=== PATIENT | female | born 1970 | race Caucasian/White ===

== ENCOUNTER 2019-09-27 06:25 | Outpatient (CLI) | payer BC, OTHER ==
[2019-09-28 12:17] LABS: SARS-CoV-2 MS2 Positive; SARS-CoV-2 N Gene Negative; SARS-CoV-2 S Gene Negative; SARS-CoV-2 orf1ab Negative
== END 2019-09-27 06:26 | disposition home or self-care (01) ==
LOC: LABBT 06:25
PROVIDERS: ATTEND Plastic Surgery
DX: Z01.818 Encounter for other preprocedural examination (principal); Z11.59 Encounter for screening for other viral diseases; C43.71 Malignant melanoma of right lower limb, including hip
CPT/HCPCS: 87635; 93005; 93010; U0003

== ENCOUNTER 2019-09-30 07:31 | Day surgery (SDC) | payer BC ==
[2019-09-26 14:55] VITALS: BMI 27.5
--- NOTE | 2019-09-30 09:46 | NM ---
RIGHT LOWER EXTREMITY LYMPHOSCINTIGRAPHY: HISTORY: Melanoma in the right lower leg just above the ankle. RADIOPHARMACEUTICAL: 432 mCi Technetium 99m filtered sulfur colloid injected perilesionally in divided doses. FINDINGS: There are multiple foci of increased uptake in the right groin. IMPRESSION: Norton lymph nodes in the right groin. POS: KALPANA
[2019-09-30 11:06] LABS: Anion Gap 12 mmol/L (10-20); BUN (Urea Nitrogen) 8 mg/dL (9.8-20.1); Calc. Creatinine Clearance 114 mL/min (70-130); Calcium 9.7 mg/dL (7.8-10.44); Carbon Dioxide 22 mmol/L (22-29); Chloride 99 mmol/L (98-107); Estimated GFR-MDRD 71; Glucose 169 mg/dL (70-105); Potassium 4.1 mmol/L (3.5-5.1); Sodium 129 mmol/L (136-145)
[2019-09-30] MEDS ORDERED: Isosulfan Blue 50 MG/5 ML VIAL ONE ×2 (11:11)
[2019-09-30] MEDS ORDERED: Bupivacaine 0.25% HCL 30 ML VIAL ONE ×2 (11:11)
[2019-09-30] MEDS ORDERED: EPINEPHrine 1 MG/ML AMP ONE ×2 (11:11→13:06)
[2019-09-30] MEDS ORDERED: Lidocaine 1% PF 5 ML VIAL ONE (11:18)
[2019-09-30] MEDS ORDERED: PHENYLEPHRINE-NS 100 MCG/ML 10 ML SYRINGE ONE (11:18)
[2019-09-30] MEDS ORDERED: EPHEDRINE 25 MG/5 ML SYRINGE ONE (11:18)
[2019-09-30] MEDS ORDERED: PROPOFOL 200 MG/20 ML VIAL ONE (11:18)
[2019-09-30] MEDS ORDERED: Ondansetron PF 4 MG/2 ML Vial ONE (11:18)
[2019-09-30] MEDS ORDERED: Fentanyl 100 MCG/2 ML VIAL ONE ×2 (12:17→15:08)
[2019-09-30] MEDS ORDERED: Mineral Oil Sterile 10ML 10 ML UDCUP ONE (13:27)
--- NOTE | 2019-10-01 12:28 | OP ---
DATE OF PROCEDURE: 09/30/2019 PREOPERATIVE DIAGNOSIS: Melanoma, right leg. POSTOPERATIVE DIAGNOSIS: Melanoma, right leg. PROCEDURES: 1. Injection of dye for identification of sentinel lymph node (22466). 2. Wide excision of melanoma, right leg (5.5 cm, including adequate margins) (71436). 3. Right inguinal open sentinel lymph node biopsy (61160). 4. Full thickness skin graft of right leg (30 sq cm). 5. Application of acellular wound matrix, right lower extremity (30 sq cm) (66639). 6. Split-thickness skin graft of right leg (30 sq cm) (96253). 7. Application of wound VAC. DESCRIPTION OF PROCEDURE: Following induction of adequate anesthesia, the patient was prepped and draped in usual sterile fashion in supine position. Lymphazurin blue was injected intradermally around the patient's right lower leg melanoma. After the dye had adequate time to take effect, the lesion was widely excised with adequate margins down to and including the underlying fascia. It was remarkable how little bleeding that there was during the surgery. I would attribute this to significant vascular disease. A 02/1000 of an inch split-thickness graft was harvested from the ipsilateral lateral thigh and meshed at 1-1/2 to 1. It was placed on the right lower leg recipient site after acellular matrix was placed on the wound bed. The graft was secured with 3-0 Prolene suture. Acellular matrix was also placed to the donor site which was 30 sq cm. Attention was turned to the right inguinal basin. An incision was made in the right inguinal crease. Dissection was guided by the Neoprobe down to identify a blue lymph node with counts over 1000. The residual basin had counts of less than 25. Again, there was a startling absence of even small capillary bleeding. The wound was copiously irrigated and closed in layers with 3-0 PDS suture and 4-0 Monocryl suture. Sterile dressings were placed over the incision sites. A wound VAC was placed over the recipient site. Job ID: [id number]
== END 2019-09-30 16:45 | disposition home or self-care (01) ==
LOC: SDC 07:31
PROVIDERS: ATTEND Plastic Surgery
PROC: 0HRKX74 Replacement of Right Lower Leg Skin with Autologous Tissue Substitute, Partial Thickness, External Approach (ICD-10-PCS; principal; 2019-09-30)
PROC: 07BH0ZX Excision of Right Inguinal Lymphatic, Open Approach, Diagnostic (ICD-10-PCS; principal; 2019-09-30)
PROC: 0HBKXZZ Excision of Right Lower Leg Skin, External Approach (ICD-10-PCS; principal; 2019-09-30)
DX: C43.71 Malignant melanoma of right lower limb, including hip (principal); E10.9 Type 1 diabetes mellitus without complications; Z79.899 Other long term (current) drug therapy; Z88.1 Allergy status to other antibiotic agents; Z88.0 Allergy status to penicillin; Z88.2 Allergy status to sulfonamides; Z96.41 Presence of insulin pump (external) (internal)
CPT/HCPCS: 36416; 78195; 80048; 88305; 88307; 88342; A9541; J0171; J0690; J2405; J2704; J3010; Q9968; S0020

== ENCOUNTER 2020-03-30 12:56 | Outpatient (CLI) | payer BC ==
--- NOTE | 2020-03-30 13:50 | MMO ---
Right Breast MAMMO Unilat Diag DDI RT. CLINICAL HISTORY: Patient is 50 years old and is seen for breast biopsy. The patient has a history of right Ultrasound Guided Core Biopsy in March,. VIEWS: The views performed were: right craniocaudal and right mediolateral oblique. FILMS COMPARED: The present examination has been compared to a prior imaging study performed at [facility] on 02/17/2020. This study has been interpreted with the assistance of computer-aided detection. MAMMOGRAM FINDINGS: There are scattered fibroglandular densities. There is an area of architectural distortion with associated biopsy clip seen in the inner region of the right breast. IMPRESSION: AREA OF ARCHITECTURAL DISTORTION IN THE RIGHT BREAST IS CONFIRMED UTILIZING POST PROCEDURE MAMMOGRAM. THE RESULTS OF THIS EXAM WERE SENT TO THE PATIENT. MAMMOGRAPHY NOTE: 1. A negative mammogram report should not delay a biopsy if a dominant of clinically suspicious mass is present. 2. Approximately 10% to 15% of breast cancers are not detected by mammography. 3. Adenosis and dense breasts may obscure an underlying neoplasm. Reported by: MARRY SCHWARTZ MD Electonically Signed: [id number]
== END 2020-03-30 12:57 | disposition home or self-care (01) ==
LOC: BICMAMMO 12:56
PROVIDERS: ATTEND Specialist
DX: N63.10 Unspecified lump in the right breast, unspecified quadrant (principal); R92.8 Other abnormal and inconclusive findings on diagnostic imaging of breast

== ENCOUNTER 2020-04-28 07:26 | Day surgery (SDC) | payer BC ==
[2020-04-27 14:27] VITALS: BMI 29.8
--- NOTE | 2020-04-28 09:04 | NM ---
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 The radiopharmaceutical was injected into 4 spots surrounding the nipple at the 12:00, 3:00, 6:00, and 9:00 positions. Massage was performed of the breast helping the radiopharmaceutical enter the lymphatics. Images obta ined showed uptake of the radiopharmaceutical within 2 axillary lymph nodes. IMPRESSION: Right axillary sentinel lymph nodes
[2020-04-28] MEDS ORDERED: Acetaminophen 500 MG TAB ONE (09:22)
[2020-04-28] MEDS ORDERED: Ketorolac Tromethamine 30 MG/ML VIAL ONE (09:23)
[2020-04-28] MEDS ORDERED: Levofloxacin 500 mg/D5W 100 ml Premix Bag ONE (09:23)
[2020-04-28] MEDS ORDERED: Isosulfan Blue 50 MG/5 ML VIAL ONE (09:34)
[2020-04-28] MEDS ORDERED: Bupivacaine 0.25% HCL 30 ML VIAL ONE ×2 (09:34→10:54)
[2020-04-28] MEDS ORDERED: EPINEPHrine 1 MG/ML AMP ONE ×2 (09:34→10:54)
[2020-04-28 10:00] LABS: #Eosinphils 0.1 thou/uL (0.0-0.7); #Monocytes 0.5 thou/uL (0.11-0.59); #Neutrophils 4.4 thou/uL (1.40-6.50); %Basophils 0.5 % (0.0-1.0); %Eosinophils 0.9 % (0.0-10.0); %Lymphocytes 17.2 % (21.0-51.0); %Monocytes 8.3 % (0.0-10.0); %Neutrophils 73.1 % (42.0-75.0); Hemoglobin 12.6 g/dL (12.0-16.0); Mean Corpuscular HGB CONC 33.3 g/dL (32.0-36.0); Mean Corpuscular Hemoglobin 31.2 pg (27.0-31.0); Mean Corpuscular Volume 93.7 fL (78.0-98.0); Mean Platelet Volume 7.8 fL (7.4-10.4); Platelet Count 234 thou/uL (130-400); RBC Distribution Width 11.9 % (11.5-14.5); Red Blood Cell (RBC) Count 4.05 mill/uL (4.20-5.40)
[2020-04-28] MEDS ORDERED: Scopolamine 1.5 mg/72 hour Patch ONE (10:06)
[2020-04-28] MEDS ORDERED: Midazolam HCl 2 mg/2 ml Vial ONE (10:15)
[2020-04-28] MEDS ORDERED: Fentanyl 250 MCG/5 ML VIAL ONE (10:15)
--- NOTE | 2020-04-28 12:21 | RAD ---
EXAM: Single specimen radiograph HISTORY: Right breast cancer FINDINGS/IMPRESSION: A single specimen radiograph was performed. There is a biopsy clip in the center of the specimen. A needle and wire are also seen in the biopsy specimen.
[2020-04-28] MEDS ORDERED: Fentanyl 100 MCG/2 ML VIAL ONE (12:35)
[2020-04-28] MEDS ORDERED: HYDROcodone/Acetaminophen 5/325 mg Tablet ONE (13:38)
[2020-04-28] MEDS ORDERED: Ondansetron PF 4 MG/2 ML Vial ONE (14:55)
[2020-04-28] MEDS ORDERED: Dexamethasone 20 MG/5 ML VIAL ONE (14:55)
[2020-04-28] MEDS ORDERED: PROPOFOL 200 MG/20 ML VIAL ONE (14:55)
[2020-04-28] MEDS ORDERED: Lidocaine 1% PF 5 ML VIAL ONE (14:55)
--- NOTE | 2020-04-28 21:00 | OP ---
DATE OF PROCEDURE: 04/28/2020 PREOPERATIVE DIAGNOSIS: Right breast cancer. POSTOPERATIVE DIAGNOSIS: Right breast cancer. PROCEDURES PERFORMED: Right breast ultrasound-guided needle localization, right breast needle localized lumpectomy, right axillary sentinel lymph node mapping, right axillary sentinel lymph node biopsy. ANESTHESIA: General endotracheal. INDICATIONS: The patient is a 50-year-old female. She underwent an ultrasound-guided right breast biopsy a couple of weeks ago. She has also undergone genetic testing. After discussion of options, she has elected to proceed with breast conservation surgery. Preoperative lymphoscintigraphy this morning to help identify the sentinel lymph nodes in the right axilla. DESCRIPTION OF PROCEDURE: Informed consent was obtained. The patient was taken to the operating room where general endotracheal anesthesia was obtained with the patient in supine position. 3 mL of Lymphazurin was infiltrated in the right breast in the periareolar subdermal tissue and massaged for 5 minutes. The right breast and axilla were then prepped with ChloraPrep and draped in sterile fashion. Attention was turned first to the axilla. Local anesthetic was infiltrated using 0.25% Marcaine with epinephrine. A transverse inferior axillary incision was created and dissection carried through skin, subcutaneous tissue. The clavipectoral fascia was incised and dissection carried out within the axilla. Utilizing the blue dye and the radioactive material, I identified 3 separate sentinel lymph nodes. One of these was somewhat more prominent, but was without any significant blue dye. The other two were relatively small that were highly radioactive and contained blue dye. Each of the three nodes were dissected circumferentially and all investing lymphatics were divided between clamps and 3-0 silk ties. The nodes were passed off the field and submitted for permanent pathology evaluation. Meticulous hemostasis was obtained. The wound was closed in layers with 3-0 and 4-0 Monocryl suture. Additional local anesthetic was instilled in the wound during closure. Dermabond was placed externally. Attention was turned to the right breast. Ultrasound was utilized to identify the malignancy at about the 1:30 radian in the upper inner right breast. The location of the malignancy was marked on the skin in a grid type fashion. A localizing needle was then passed through the malignancy in a medial to lateral fashion using sonographic guidance. Additional local anesthetic was infiltrated. A transverse incision was created based on needle insertion site. Dissection was carried through skin and subcutaneous tissue. Dissection was carried at least 1 cm into the breast at which point, I dissected flaps superiorly as well as medially. Dissection was carried down behind the localizing wire down to the chest wall. The malignancy appeared to be deep-seated within the breast tissue. The breast tissue was dissected off the pectoral fascia in a medial to lateral fashion. Ultrasound was utilized as well as the location of the wire to try and dissect a wide core of tissue around the cancer. A wide lump of tissue was dissected around the localizing wire and removed intact. The specimen was oriented with sutures and passed off the field for specimen mammography. This revealed that the biopsy clip was present within the center of the lesion. The mass had been interrogated with ultrasound and appeared to have appropriate margins circumferentially. Meticulous hemostasis was obtained within the wound. It was irrigated and all irrigant was aspirated. The wound was closed in layers with 3-0 and 4-0 Monocryl. Additional local anesthetic was instilled in the wound closure. Dermabond was placed externally. There were no complications. The patient tolerated the procedure well, and was taken to recovery room in stable condition. Job ID: [id number]
== END 2020-04-28 14:30 | disposition home or self-care (01) ==
LOC: SDC 07:26
PROVIDERS: ATTEND Specialist
PROC: 0HBT0ZZ Excision of Right Breast, Open Approach (ICD-10-PCS; principal; 2020-04-28)
PROC: 07B50ZX Excision of Right Axillary Lymphatic, Open Approach, Diagnostic (ICD-10-PCS; principal; 2020-04-28)
DX: C50.211 Malignant neoplasm of upper-inner quadrant of right female breast (principal); E10.9 Type 1 diabetes mellitus without complications; E03.9 Hypothyroidism, unspecified; Z17.0 Estrogen receptor positive status [ER+]; Z85.820 Personal history of malignant melanoma of skin; Z79.899 Other long term (current) drug therapy; Z88.0 Allergy status to penicillin; Z88.2 Allergy status to sulfonamides
CPT/HCPCS: 36416; 78195; 85025; 88307; 88342; A9541; J0171; J1100; J1885; J1956; J2250; J2405; J2704; J3010; Q9968; S0020

== ENCOUNTER 2020-05-06 10:00 | Outpatient (CLI) | payer BC ==
[2020-04-22 10:03] LABS: Anion Gap 11 mmol/L (10-20); BUN (Urea Nitrogen) 8 mg/dL (9.8-20.1); Calc. Creatinine Clearance 0 mL/min (70-130); Carbon Dioxide 26 mmol/L (22-29); Chloride 98 mmol/L (98-107); Glucose 149 mg/dL (70-105); Potassium 4.4 mmol/L (3.5-5.1); Sodium 131 mmol/L (136-145)
[2020-04-22 18:02] LABS: SARS-CoV-2 PCR by NAA Not Detected (NotDetected)
--- NOTE | 2020-04-29 15:09 | EKG ---
Test Reason : Blood Pressure : / mmHG Vent. Rate : 070 BPM Atrial Rate : 070 BPM P-R Int : 150 ms QRS Dur : 068 ms QT Int : 396 ms P-R-T Axes : 071 057 059 degrees QTc Int : 427 ms Normal sinus rhythm Normal ECG No previous ECGs available Confirmed by ANNA LAMB (2) on 04/29/2020 3:08:55 PM Referred By: DAIANA Confirmed By:ANNA LAMB
[2020-05-06 20:40] LABS: SARS-CoV-2 PCR by NAA Not Detected (NotDetected)
== END 2020-05-06 10:01 ==
LOC: LABBT 10:00
PROVIDERS: ATTEND Specialist
DX: Z01.818 Encounter for other preprocedural examination (principal); Z20.822 Contact with and (suspected) exposure to COVID-19
CPT/HCPCS: 80048; 87635; 93005; 93010; U0003; U0005

== ENCOUNTER 2020-05-11 10:30 | Day surgery (SDC) | payer BC ==
[2020-05-08 15:14] VITALS: BMI 29.2
[~2020-05-11 10:30] MED LIST: Dexamethasone 20 MG/5 ML VIAL ONE; Lidocaine 1% PF 5 ML VIAL ONE; Metoclopramide HCl 10 MG/2 ML VIAL ONE; Ondansetron PF 4 MG/2 ML Vial ONE; PHENYLEPHRINE-NS 100 MCG/ML 10 ML SYRINGE ONE; PROPOFOL 200 MG/20 ML VIAL ONE; diphenhydrAMINE 50 MG/ML VIAL ONE
[2020-05-11] MEDS ORDERED: Acetaminophen 500 MG TAB ONE (10:37)
[2020-05-11] MEDS ORDERED: Ketorolac Tromethamine 30 MG/ML VIAL ONE (10:37)
[2020-05-11] MEDS ORDERED: Bupivacaine 0.25% HCL 30 ML VIAL ONE (12:00)
[2020-05-11] MEDS ORDERED: XYLOCAINE 2%-EPI 1:100,000 20 ML VIAL ONE (12:00)
[2020-05-11] MEDS ORDERED: Fentanyl 100 MCG/2 ML VIAL ONE ×2 (12:27)
[2020-05-11] MEDS ORDERED: Levofloxacin 500 mg/D5W 100 ml Premix Bag ONE (12:42)
[2020-05-11] MEDS ORDERED: Famotidine/PF 20 mg/2ml Vial ONE (12:56)
[2020-05-11] MEDS ORDERED: Midazolam HCl 2 mg/2 ml Vial ONE (12:56)
--- NOTE | 2020-05-12 10:41 | OP ---
DATE OF PROCEDURE: 05/11/2020 PREOPERATIVE DIAGNOSIS: Right breast cancer, status post right breast lumpectomy with positive margins. POSTOPERATIVE DIAGNOSIS: Right breast cancer, status post right breast lumpectomy with positive margins. OPERATION PERFORMED: Re-excision of right lumpectomy, obtaining re-excision of the anterior, superior, posterior, and inferior margins. ANESTHESIA: General endotracheal. INDICATIONS: The patient is a 50-year-old white female. She is status post right breast lumpectomy. Although a generous lumpectomy specimen was removed, there were several margins positive for both invasive and ductal cancer. One of the margins that was staged as positive was posterior in spite of lifting of the lesion off the chest wall and underlying pectoral muscle. DESCRIPTION OF OPERATION: Informed consent was obtained. Patient was taken to the operating room where general anesthesia was obtained with patient in supine position. Right breast prepped with ChloraPrep and draped in sterile fashion. Local anesthetic was infiltrated using a mixture of 1% lidocaine with epinephrine and 0.25% Marcaine. Prior incision was opened and dissection was carried through subcutaneous tissue down into the biopsy cavity. The biopsy cavity seroma was aspirated. I then re-excised the lumpectomy cavity in three specimens. I tied the margin of the superior and anterior aspect with one specimen, the inferior and anterior specimen with a 2nd specimen, and a posterior margin with a 3rd specimen. Much of the 3rd specimen was the scar tissue and some muscle from the pectoralis, but the entire posterior aspect was re-excised. There was a single nodule. It was difficult to tell if it was concerning or simply scar tissue against the chest wall in the superior aspect. This was obtained after the superior margin had been removed. After all margins were obtained, they were oriented with sutures and submitted to pathology. There was no residual visible or palpable abnormal tissue. Hemostasis obtained with electrocautery. The wound was closed in layers with 3-0 and 4-0 Monocryl, and additional local anesthetic was instilled during closure. Dermabond was placed externally. There were no complications. The patient tolerated the procedure well and was taken to recovery room in stable condition. Job ID: [id number]
== END 2020-05-11 16:15 | disposition home or self-care (01) ==
LOC: SDC 10:30
PROVIDERS: ATTEND Specialist
PROC: 0HBT0ZZ Excision of Right Breast, Open Approach (ICD-10-PCS; principal; 2020-05-11)
DX: D05.11 Intraductal carcinoma in situ of right breast (principal); N60.31 Fibrosclerosis of right breast; E10.9 Type 1 diabetes mellitus without complications; E03.9 Hypothyroidism, unspecified; Z17.0 Estrogen receptor positive status [ER+]; Z79.4 Long term (current) use of insulin; Z79.899 Other long term (current) drug therapy; Z88.0 Allergy status to penicillin; Z88.1 Allergy status to other antibiotic agents; Z88.2 Allergy status to sulfonamides
CPT/HCPCS: 88305; J1100; J1200; J1885; J1956; J2250; J2405; J2704; J2765; J3010; S0020; S0028

== ENCOUNTER 2021-04-19 09:16 | Outpatient (CLI) | payer BC | END 2021-04-19 09:17 | disposition home or self-care (01) | LOC: BICMAMMO 09:16 | PROVIDERS: ATTEND Specialist | DX: C50.911 Malignant neoplasm of unspecified site of right female breast (principal) | CPT/HCPCS: 77066; G0279 ==

== ENCOUNTER 2021-12-15 07:09 | Outpatient (CLI) | payer BC | END 2021-12-15 07:10 | disposition home or self-care (01) | LOC: BICULT 07:09 | PROVIDERS: ATTEND Nurse Practitioner Family | DX: I89.0 Lymphedema, not elsewhere classified (principal); E10.9 Type 1 diabetes mellitus without complications; M79.604 Pain in right leg; Z85.820 Personal history of malignant melanoma of skin | CPT/HCPCS: 93923 ==

== ENCOUNTER 2022-04-20 09:54 | Outpatient (CLI) | payer BC | END 2022-04-20 09:55 | disposition home or self-care (01) | LOC: BICMAMMO 09:54 | PROVIDERS: ATTEND Specialist | DX: Z08 Encounter for follow-up examination after completed treatment for malignant neoplasm (principal); Z85.3 Personal history of malignant neoplasm of breast | CPT/HCPCS: 77066; G0279 ==

== ENCOUNTER 2023-02-13 10:50 | Outpatient (CLI) | payer BC | END 2023-02-13 10:51 | disposition home or self-care (01) | LOC: BICRAD 10:50 | PROVIDERS: ATTEND Nurse Practitioner Family | DX: M79.89 Other specified soft tissue disorders (principal); R23.8 Other skin changes ==